=== PATIENT | female | born 1970 | race Caucasian/White ===

== ENCOUNTER 2016-06-14 11:05 | Emergency (ER) | payer SELFPAY ==
[~2016-06-14] VITALS: Ht 157.5 cm; Wt 73.0 kg
[~2016-06-14 11:05] MED LIST: CIPR500T4 PO; DOCU-144 PO; HYDR-3498 PO
[2016-06-14 11:08] VITALS: Ht 157.5 cm; Wt 73.0 kg
--- NOTE | 2016-06-14 11:32 | ERD ---
ER Documentation Chief Complaint Date/Time DATE: 06/14/16 TIME: 11:28 Chief Complaint Complains of headache and fever x 3 days HPI 44-year-old female presents to the emergency room for severe occipital headache , productive cough, fever for 3 days. Occipital headache was described as achy non-radiating. She also added that she has frontal and maxillary sinus pain. Denies head trauma, that this is the worst headache of her life, loss of consciousness, dizziness, blurry vision, pain on eye movement, changes in vision , photophobia, ear pain, throat pain, difficulty swallowing, neck pain, neck stiffness, shoulder pain, chest pain, cough, hemoptysis, abdominal pain, back pain, loss of appetite, nausea, vomiting, hematochezia, diarrhea, constipation, urinary symptoms, , the possibility of being , bladder and bowel incontinences, extremity weakness, extremity tenderness, numbness or tingling sensation, difficulty walking, recent travel, recent exposure to illness, recent antibiotic use in the last 3 months. Allergy: No known drug allergies. PMH: Hypertension. Family medical history: Diabetes, hypertension. Denies family history of stroke , cardiac before the age of 50. AO LMP: "I just started today." Medications: Lisinopril. Cholecystectomy Surgery: In 2016. Primary Social History: Not working at this time. Denies smoking, use of alcohol, use of illegal drugs. ROS All systems reviewed and are negative except as per history of present illness. Medications Home Meds Active Scripts Ciprofloxacin Hcl* (Ciprofloxacin Hcl*) 500 Mg Tablet, 500 MG PO BID for 5 Days , #10 TAB Prov:JAROD MACDONALD MD 08/25/15 Docusate Sodium* (Colace*) 100 Mg Capsule, 100 MG PO BID for 10 Days, #20 CAP Prov:JAROD MACDONALD MD 08/25/15 Hydrocodone Bit/Acetaminophen (Anexsia 5-325 Mg Tablet) 1 Tab Tablet, 1 TAB PO Q4H Y for PAIN for 7 Days, #24 TAB Prov:JAROD MACDONALD MD 08/25/15 Allergies Allergies: Coded Allergies: No Known Allergy (Unverified , 08/24/15) PMhx/Soc Anesthesia Reaction: No (DENIES) Hx Neurological Disorder: No (DENIES) Hx Respiratory Disorders: No Hx Cardiac Disorders: No (DENIES) Hx Psychiatric Problems: No (DENIES) Hx Miscellaneous Medical Probl: No (DENIES) Hx Alcohol Use: Yes (OCCASIONAL) Hx Substance Use: No (DENIES) Hx Tobacco Use: No (DENIES) Physical Exam Vitals Vital Signs Date Time Temp Pulse Resp B/P Pulse Ox O2 Delivery O2 Flow Rate FiO2 06/14/16 14:22 98.1 06/14/16 11:08 104.3 110 20 147/65 99 Physical Exam CONSTITUTIONAL: Well-appearing; well-nourished; in no apparent distress. HEAD: Normocephalic; atraumatic. EYES: Conjunctiva clear, sclera non-icteric, EOM intact. PERRL. Extraocular movement of her eyes is within normal limits/intact. No pain on eye movement. Ears: Hearing intact. EACs clear, TMs non-bulging, non-inflamed, translucent & mobile, ossicles normal appearance, No obstructions, no erythema, no discharges Nose: No obstructions. No polyps. No external lesions. Congestion. No external lesions, septum and turbinates normal. No rhinorrhea. No discharges. Frontal sinus is tender to palpation. Maxillary sinus is tender to palpation. MOUTH: Moist mucous membranes, no lesion, no obstructions, no vesicles, no thrush, patent airway Throat: Uvula in midline. Right tonsil is +1 with no erythema, no exudate. Left tonsil is +1 with no erythema, no exudate. Tolerating secretions well. Good gag reflex. Patent airway. Neck: Supple, without lesions, bruits, or adenopathy. No mass. Thyroid non- enlarged and non-tender to palpation. Good and full range of motion of neck without pain/discomfort. No nuchal rigidity. CHEST: Symmetrical chest. Respirations even and not labored. No retractions noted. CARDIOVASCULAR: Normal S1, S2. RRR. No murmurs, gallops. RESPIRATORY: Normal chest excursion with respiration; breath sounds clear and equal bilaterally; no wheezes, rhonchi, or rales. Breathing even and unlabored. Speaking in clear, full, and complete sentences w/ ease. ABDOMEN: Normal bowel sounds normal. Soft, round, non-distended, non-guarding, no tenderness, no rebound, no organomegaly, no masses, no pulsating abdominal mass. No hernia. No peritoneal signs. : No CVA tenderness. BACK: Symmetrical shoulder. Spine is midline without deformity, tenderness. No evidence of trauma or deformity. PELVIS: Stable pelvis. No evidence of trauma or deformity. MUSCULOSKELETAL: Normal gait and station. No misalignment, asymmetry, crepitation, defects, tenderness, masses, effusions, decreased range of motion, instability, atrophy or abnormal strength or tone in the head, neck, spine, ribs , pelvis or extremities. No calf tenderness. NEUROVASCULAR: Distal pulses are present. Pedal pulse are present, equal, and normal. Capillary refills are < 2 seconds. NEUROLOGIC: Alert and oriented x4. Speaks full and clear sentences. Cranial Nerves II-XII normal. Sensation to pain, touch, and proprioception normal. Grossly unremarkable. No neurologic deficits. Romberg test is negative. PSYCHOLOGICAL: The patients mood and manner are appropriate. No hallucinations , delusions. Not SI. Not HI. Has the capacity to decide for self SKIN: Normal for age and ethnicity; warm; dry; good turgor; no apparent lesions or exudates. No rashes, hives, discoloration. Intact. Result Diagram: 06/14/16 1242 06/14/16 1242 Results 24 hrs Laboratory Tests Test 06/14/16 12:42 White Blood Count 10.510^3/ul Red Blood Count 4.3010^6/ul Hemoglobin 12.0g/dl Hematocrit 36.7% Mean Corpuscular Volume 85.3fl Mean Corpuscular Hemoglobin 27.9pg Mean Corpuscular Hemoglobin Concent 32.7g/dl Red Cell Distribution Width 14.6% Platelet Count 21003^3/UL Mean Platelet Volume 10.4fl Neutrophils % 85.6% Lymphocytes % 5.2% Monocytes % 8.6% Eosinophils % 0.0% Basophils % 0.2% Nucleated Red Blood Cells % 0.0/100WBC Neutrophils # 9.010^3/ul Lymphocytes # 0.510^3/ul Monocytes # 0.910^3/ul Eosinophils # 0.010^3/ul Basophils # 0.010^3/ul Nucleated Red Blood Cells # 0.010^3/ul Sodium Level 131mmol/L Potassium Level 3.9mmol/L Chloride Level 97mmol/L Carbon Dioxide Level 27mmol/L Anion Gap 11 Blood Urea Nitrogen 10mg/dl Creatinine 0.73mg/dl Glucose Level 132mg/dl Calcium Level 9.2mg/dl Current Medications Medications (Trade) Dose Ordered Sig/Vincenzo Route PRN Reason Start Time Stop Time Status Last Admin Dose Admin Ibuprofen (Motrin) 600 mg ONCE ONCE PO 06/14/16 12:00 06/14/16 12:01 DC 06/14/16 11:45 Ceftriaxone Sodium (Rocephin) 1 gm ONCE ONCE IM 06/14/16 12:00 06/14/16 12:01 DC 06/14/16 11:45 Lidocaine (Xylocaine 1% (Mdv) 20 ml) 20 ml ONCE ONCE SC 06/14/16 12:00 06/14/16 12:01 DC 06/14/16 11:46 Acetaminophen (Tylenol Tab) 650 mg ONCE ONCE PO 06/14/16 12:30 06/14/16 12:31 DC 06/14/16 12:16 Procedures/MDM Examination: Please see physical examination. Disease process, medical treatment was explained to the patient and family member. They verbalized understanding and agreed with the diagnostic tests, medical treatment, and follow-up care. Radiology: Chest x-ray Impression: No acute disease. POC urine : Treatment: Motrin. Ceftriaxone IM. Tylenol. Re-evaluation: Denies headache, dizziness, blurred vision, neck pain, chest pain , back pain, abdominal pain, numbness and tingling sensation. No nausea and vomiting. Extraocular movement of her eyes is within normal limits. No pain on eye movement. No light sensitivity. No neurological deficits. Latest temperature is 98.1. Consultation: None. Differential diagnosis: Bacterial meningitis versus subarachnoid hemorrhage versus sinusitis versus pneumonia Medical decision makin-year-old female presents to the emergency room for severe occipital headache, productive cough, fever for 3 days. Occipital headache was described as achy non-radiating. She also added that she has frontal and maxillary sinus pain. Patient's complaint, patient's presentation, my physical findings, diagnostic test results are consistent with my final diagnosis of Medications prescribed are the following: Augmentin. Motrin. Tylenol. Patient and family member are made aware of the side effects and adverse reactions of the medications prescribed. Instructed on when to seek emergent and medical attention in case allergic/anaphylactic reactions or severe side effects and or adverse reactions to medications. Patient and family member verbalized understanding. Patient instructed Instructed to follow-up with his PCP in 24-48 hours. Instructed to Call 911 for chest pain, shortness of breath. Advised to come back here in ED as soon as possible for severity of symptoms which includes but not limited to: any new symptoms; shortness of breath/difficulty of breathing; cardiovascular changes; severe gastrointestinal symptoms; signs and symptoms of bleeding and or infection; signs of compartment syndrome/neurovascular changes; neurological changes/deficits. Patient and family member verbalized understanding. Upon discharge, patient is alert and oriented x 4, speaks full and clear sentences, denies pain, has no neurological deficits, has no neurovascular deficits, difficulty of breathing. Breathing even and unlabored. Lung sounds are clear to auscultation. Not in distress. Appears comfortable. Ambulatory with steady gait. Appears satisfied with care provided here in ED. Departure Diagnosis: Primary Impression: Sinusitis Additional Impressions: Headache Fever Condition: Good Additional Instructions: Patient instructed Instructed to follow-up with his PCP in 24-48 hours. Instructed to Call 911 for chest pain, shortness of breath. Advised to come back here in ED as soon as possible for severity of symptoms which includes but not limited to: any new symptoms; shortness of breath/difficulty of breathing; cardiovascular changes; severe gastrointestinal symptoms; signs and symptoms of bleeding and or infection; signs of compartment syndrome/neurovascular changes; neurological changes/deficits. Patient and family member verbalized understanding. MIREYA MAYNARD Jun 14, 2016 11:32
[2016-06-14] MEDS ORDERED: IBUPROFEN 600 MG TAB PO ONE (12:00)
[2016-06-14] MEDS ORDERED: LIDOCAINE 1% (MDV) 20 ML INJ SC ONE (12:00)
[2016-06-14] MEDS ORDERED: CEFTRIAXONE 1 GM INJ IM ONE (12:00)
--- NOTE | 2016-06-14 12:06 | RADRPT ---
PROCEDURE: XR Chest. CLINICAL INDICATION: chest pain , cough TECHNIQUE: PA and lateral views of the chest were obtained COMPARISON: None FINDINGS: The heart and mediastinum are within normal limits. The lungs are clear. There is no pleural effusion or pneumothorax. The bones and soft tissues are unremarkable. RPTAT: AA IMPRESSION: No acute disease. .Silas Gates MD, MD Date Time Electronically viewed and signed by .Silas Gates MD, on 06/14/2016 12:06 .S/
[2016-06-14] MEDS ORDERED: ACETAMINOPHEN 325 MG TAB PO ONE (12:30)
[2016-06-14 13:17] LABS: ADD SCAN DIFF NO
[2016-06-14 13:19] LABS: ABNORMAL IP MESSAGE 1; BASOPHILS % 0.2 % (0.0-2.0); HEMATOCRIT 36.7 % (37.0-47.0); LYMPHOCYTES # 0.5 10^3/ul (0.8-2.9); LYMPHOCYTES % 5.2 % (15.0-51.0); MEAN CORPUSCULAR HEMOGLOBIN 27.9 pg (29.0-33.0); MEAN CORPUSCULAR HGB CONC 32.7 g/dl (32.0-37.0); MEAN CORPUSCULAR VOLUME 85.3 fl (82.0-101.0); MEAN PLATELET VOLUME 10.4 fl (7.4-10.4); MONOCYTE # 0.9 10^3/ul (0.3-0.9); MONOCYTES % 8.6 % (0.0-11.0); NEUTROPHILS % 85.6 % (39.0-77.0); PLATELET COUNT 235 10^3/UL (140-415); RED CELL DISTRIBUTION WIDTH 14.6 % (11.5-14.5); WHITE BLOOD COUNT 10.5 10^3/ul (4.8-10.8)
[2016-06-14 13:28] LABS: POTASSIUM 3.9 mmol/L (3.5-5.1)
[2016-06-14 13:30] LABS: CREATININE 0.73 mg/dl (0.44-1.00)
[2016-06-14 13:31] LABS: CALCIUM 9.2 mg/dl (8.4-10.2)
--- NOTE | 2016-06-14 14:02 | RADRPT ---
PROCEDURE: CT brain without contrast CLINICAL INDICATION: Severe occipital headache, pain on movement TECHNIQUE: CT of the brain without contrast was performed on a multidetector CT scanner, with multi planar reformats. One or more of the following dose reduction techniques were used: Automated expos ure control, adjustment in mA and / or kV according to patient size, use of iterative reconstructive technique. CTDIvol = 44 mGy; DLP = 720 mGy-cm. COMPARISON: None available FINDINGS: No acute intracranial hemorrhage is identified. No extra-axial fluid collection is seen. There is no mass effect. No midline shift is identified. Ventricles and sulci are within normal limits for size and configuration. The density of the brain is within normal limits. Joy-white differentiation is preserved. Osseous structures are unremarkable. Mastoid air cells and imaged paranasal sinuses grossly clear. IMPRESSION: Unremarkable noncontrast CT of the brain. RPTAT: AA .Jose G Rodriguez MD, MD Date Time Electronically viewed and signed by .Jose G Rodriguez MD, on 06/14/2016 14:01 .O/
[2016-06-14 14:22] VITALS: TEMP 98.1
[2016-06-14] MEDS ORDERED: AMOX1TAB10 PO (14:27)
[2016-06-14] MEDS ORDERED: IBUP-1542 PO (14:28)
[2016-06-14] MEDS ORDERED: ACET500C5 PO (14:28)
== END 2016-06-14 15:00 | disposition home or self-care (01) ==
LOC: FTE 11:05
DX: J32.9 Chronic sinusitis, unspecified (principal); R50.9 Fever, unspecified; I10 Essential (primary) hypertension; E11.9 Type 2 diabetes mellitus without complications
CPT/HCPCS: 70450; 71020; 80048; 85025; J0696; 96372